=== PATIENT | female | born 1990 | race Caucasian/White ===

== ENCOUNTER 2017-10-12 17:25 | Emergency (ER) | payer OTHER ==
--- NOTE | 2017-10-12 17:56 | EDPHY ---
H & P Smoking Status: Never smoked Time Seen by Provider: 10/12/17 17:53 HPI/ROS: CHIEF COMPLAINT: Right wrist pain HISTORY OF PRESENT ILLNESS: Patient is a 27-year-old female with no significant past medical history who states she slipped just prior to arrival and fell on her outstretched right hand. She points to the distal radius and scaphoid the source of her pain. She denies any numbness or loss of range of motion. She denies elbow and shoulder pain and other injury. She has tried no medications to alleviate her pain. Pain is worse this range of motion. REVIEW OF SYSTEMS: Constitutional: No fever, no chills. Eyes: No discharge. ENT: No sore throat. Cardiovascular: No chest pain, no palpitations. Respiratory: No cough, no shortness of breath. Gastrointestinal: No abdominal pain, no vomiting. Genitourinary: No hematuria. Musculoskeletal: No back pain. Skin: No rashes. Neurological: No headache. (Ej Stovall) Physical Exam: General Appearance: Alert and no distress. Eyes: Pupils equal and round no injection. Respiratory: Chest is nontender, lungs are clear to auscultation. Cardiac: regular rate and rhythm. Gastrointestinal: Abdomen is soft and nontender, no masses, bowel sounds normal. Musculoskeletal: Neck is supple and nontender. Normal appearing right wrist with tenderness to the distal radius and scaphoid. Extremities have full range of motion and are nontender. Skin: No rashes or lesions. (Ej Stovall) Constitutional: Initial Vital Signs Temperature (C) 36.9 C 10/12/17 17:29 Heart Rate 81 10/12/17 17:29 Respiratory Rate 16 10/12/17 17:29 Blood Pressure 122/77 H 10/12/17 17:29 O2 Sat (%) 98 10/12/17 17:29 O2 Delivery Mode Room Air Allergies/Adverse Reactions: No Known Allergies Allergy (Unverified 10/12/17 17:31) Medical Decision Making - Diagnostics Imaging Results: Imaging Impressions Wrist X-Ray 10/12/17 17:31 Impression: Normal right wrist series. ED Course/Re-evaluation: Patient here with wrist pain after ground level fall. There is no deformity and she is neurovascular intact distal to the wrist. She has full range of motion of the wrist and fingers. She unfortunately does have tenderness over the scaphoid so she was placed in a thumb spica splint which she will wear until she follows up for repeat exam and approximately 5 days. (Ej Stovall) I did not see this patient while she was in the emergency department. However her care was discussed with the PA while the patient was in the department. I agree with treatment plan and management (Willy Kent) Departure - Departure Disposition: Home, Routine, Self-Care Clinical Impression: Wrist sprain Condition: Good Instructions: Scaphoid Fracture (ED), Wrist Sprain (ED) Additional Instructions: Please follow up with her primary care physician in 5 days for repeat evaluation. They may choose to do repeat x-rays or do an MRI few still have tenderness over the scaphoid. His Referrals: NONE *PRIMARY CARE P,. [Primary Care Provider] - As per Instructions Stand Alone Forms: Work Excuse
[2017-10-12 18:45] VITALS: BP 135/85
== END 2017-10-12 18:45 | disposition home or self-care (01) ==
DX: S63.501A Unspecified sprain of right wrist, initial encounter (principal); W01.0XXA Fall on same level from slipping, tripping and stumbling without subsequent striking against object, initial encounter